=== PATIENT | male | born 1965 | race African-American/Black ===

== ENCOUNTER 2017-06-07 12:26 | Day surgery (SDC) | payer OTHER ==
[~2017-06-07] VITALS: Ht 180.3 cm; Wt 80.3 kg
[2017-06-07 13:44] VITALS: Ht 180.3 cm; Wt 80.3 kg
[2017-06-07] MEDS ORDERED: RANI-347 PO (13:50)
[2017-06-07] MEDS ORDERED: TOLT1TAB4 PO (13:50)
[2017-06-07] MEDS ORDERED: BENA5TAB2 PO (13:50)
[2017-06-07] MEDS ORDERED: AMLO-145 PO (13:50)
[2017-06-07] MEDS ORDERED: HYDR12.58 PO (13:50)
[2017-06-07 14:34] VITALS: BP 124/88; PULSE 83; RESP 18
--- NOTE | 2017-06-07 15:08 | OPR ---
Date/Time of Note Date/Time of Note DATE: 06/07/17 TIME: 15:05 Operative Report Preoperative Diagnosis Dyspepsia Postoperative Diagnosis Impression: Moderate distal esophagitis Moderate gastritis. R/O H pylori. Biopsied Plan: PPI therapy Review pathology . Operation/Procedure Performed EGD + Bx Surgeon: FARHAD CRUZ MD Anesthesia: other (Versed 5 mg / Fentanyl 75 mcg IVP) Estimated Blood Loss: none Specimens Gastric body and antrum Grafts/Implants None Complications: None FARHAD CRUZ MD Jun 07, 2017 15:08
--- NOTE | 2017-06-07 15:11 | OPR ---
Date/Time of Note Date/Time of Note DATE: 06/07/17 TIME: 15:08 Operative Report Preoperative Diagnosis Colorectal cancer screening Postoperative Diagnosis Impression: * 3 mm polyp sigmoid colon. Ablated * 3 mm polyp rectum. Ablated * Moderate-sized internal hemorrhoids * Otherwise normal colonoscopy to cecum Plan: * Review pathology as soon as available * Annual Hemoccult stool testing * Surveillance colonoscopy in 5 years. . Operation/Procedure Performed Colonoscopy with polyp ablation Surgeon: FARHAD CRUZ MD Anesthesia: other (Versed 5 mg / Fentanyl 75 mcg IVP) Estimated Blood Loss: none Specimens Sigmoid polyp, rectal polyp Grafts/Implants None Complications: None FARHAD CRUZ MD Jun 07, 2017 15:10
[2017-06-07] MEDS ORDERED: FENTAnyl 50 MCG/ML VIAL ONE (15:38)
[2017-06-07] MEDS ORDERED: MIDAZOLAM 1 MG/ML 2 ML INJ ONE ×3 (15:38)
--- NOTE | 2017-06-08 03:03 | GILP ---
DATE OF PROCEDURE: 06/07/2017 PROCEDURE PERFORMED: Esophagogastroduodenoscopy with biopsies. HISTORY INDICATIONS: The patient being evaluated for dyspepsia. ANESTHESIA: Monitored anesthesia care by anesthesia. INSTRUMENT USED: Olympus endoscope. TECHNIQUE: After informed consent, with the patient/relatives understanding the procedure, its indications, potential risks and complications, including but not limited to: allergic reaction, bleeding, perforation or infection, and after all pertinent questions were answered to the patients satisfaction, the patient/relatives signed witnessed informed consent. Following this, premedication was administered slowly IV push under careful cardiovascular and respiratory monitoring with pulse oximetry, automatic blood pressure and product strategy director. Once the sedative effect was achieved the patient was place in the left lateral decubitus, the panendoscope was introduced and advanced under visual control. Careful examination of the upper gastrointestinal tract, both on insertion as well as withdrawal of the instrument disclosed the following findings: ESOPHAGUS: The distal esophagus shows erythema and edema of the mucosa which is graded as moderate. STOMACH: Upon entrance to the stomach air was insufflated, the gastric casas distended normally. The mucosa of the fundus, body and antrum of the stomach was carefully examined and shows erythema and edema of the mucosa of a moderate degree. Biopsies were obtained to rule out H. pylori infection. PYLORUS: The pylorus appears patent and within normal limits, with no evidence of gastric outlet obstruction. DUODENUM: The duodenal mucosa was carefully examined in the duodenal bulb as well as the second portion of the duodenum and appears unremarkable with no evidence of duodenitis, ulcer or neoplasm. The instrument was then withdrawn, the patient tolerated the procedure well and was transfer out of the endoscopy suite awake, and in good condition to continue recovery under observation. IMPRESSION: 1. Moderate distal esophagitis. 2. Gastritis. Rule out H. pylori infection. Biopsies obtained. PLAN: The patient will be treated with PPIs. Further recommendation will be determined by his clinical course as well as review of biopsies. Dictated By: Kiana Wing MD /sarahi/starla /Document#: [id number]
--- NOTE | 2017-06-08 03:21 | GILP ---
DATE OF PROCEDURE: 06/07/2017 PROCEDURE: Colonoscopy with polyp ablation. PREMEDICATION: Monitored anesthesia care by Anesthesiologist. INSTRUMENT USED: Colonoscope. PREPARATION: Adequate. TECHNIQUE: After informed consent, with the patient/relatives understanding the procedure, its indications potential risks and complications, including but not limited to: allergic reaction, bleeding, perforation, infection, missed lesions and after all pertinent questions were answered to the patient's satisfaction, the patient/relatives signed the witnessed informed consent. Following this, premedication was administered slowly IV push by under careful cardiovascular and respiratory monitoring with pulse oximetry, automatic blood pressure and monitoring tech. Once the sedative effect was achieved, the patient was placed in the left lateral decubitus position, digital rectal examination was performed. The colonoscope was then introduced and advanced under visual control throughout all segments of the colon including: the rectum, sigmoid, descending colon, splenic flexure, transverse colon, hepatic flexure, ascending colon and finally reaching the cecum which was clearly identified by transillumination, finger indentation and the ileocecal valve. Careful examination of the mucosa of the lower gastrointestinal tract both on insertion as well as withdrawal of the instrument disclosed the following findings: RECTAL EXAMINATION: There is a 3-mm polyp in the rectum, which is ablated with biopsy forceps. COLONIC MUCOSA: There is a 3-mm polyp in the sigmoid colon, which was ablated with biopsy forceps. The remainder of the colonic mucosa is unremarkable. The ileocecal valve was clearly identified and appears unremarkable. Moderate-sized internal hemorrhoids are noted. The instrument was then withdrawn, the patient tolerated the procedure well and was transferred out of the Endoscopy Suite awake and in good condition to continue recovery under observation. IMPRESSION: 1. A 3-mm polyp in the sigmoid colon, ablated. 2. A 3-mm polyp in the rectum, ablated. 3. Moderate-sized internal hemorrhoids. 4. Otherwise, normal colonoscopy of the cecum. PLAN: Pathology will be reviewed as soon as available. Anal Hemoccult stool testing is recommended. Colonoscopy in 5 years is recommended. Dictated By: Kiana Wing MD /sarahi/evi /Document#: [id number]
== END 2017-06-07 17:23 | disposition home or self-care (01) ==
LOC: GIL 12:26
PROVIDERS: ATTEND Internal Medicine Gastroenterology
DX: Z12.11 Encounter for screening for malignant neoplasm of colon (principal); K63.5 Polyp of colon; K62.1 Rectal polyp; K64.8 Other hemorrhoids; K20.9 Esophagitis, unspecified; K29.70 Gastritis, unspecified, without bleeding; Z85.46 Personal history of malignant neoplasm of prostate; M19.90 Unspecified osteoarthritis, unspecified site; I10 Essential (primary) hypertension; Z80.0 Family history of malignant neoplasm of digestive organs
CPT/HCPCS: 43239; 45380; 88305; J2250; J3010; Z7610